=== PATIENT | female | born 1960 | race Caucasian/White ===

== ENCOUNTER 2019-04-20 17:52 | Emergency (ER) | payer MEDICARE, SELFPAY ==
[2019-04-20 17:53] VITALS: BP 152/87; PULSE 73; RESP 18; TEMP 36.8; O2SAT 96; BMI 48.6
--- NOTE | 2019-04-20 18:15 | CT_ITS ---
STUDY: CT BRAIN WITHOUT CONTRAST REASON FOR EXAM: Female, 58 years old. Head injury status post fall. Laceration above eye. RADIATION DOSAGE (If Supplied By Facility): CTDIvol = ( 044.99 ) mGy, DLP = ( 846.73 ) mGycm TECHNIQUE: Transaxial CT imaging of the brain was performed without administration of intravenous contrast material. Individualized dose optimization techniques were used for this CT. COMPARISON: No relevant priors. FINDINGS: Subcutaneous hematoma left forehead. Normal calvarium. Normal size ventricles and extra-axial spaces for the patient''s age. Normal white matter tracts of the cerebral hemispheres. Normal basal ganglia and thalami. Normal brainstem. Normal cerebellum. There is no intracranial hemorrhage. There are no findings of an acute ischemic infarction. Normal visualized paranasal sinuses. CT/Brain/Head without Contrast IMPRESSION: Left forehead hematoma and laceration. No acute intracranial injury. Electronically Signed: Eyal Shaw MD at 18:59 EST , Service support ,
--- NOTE | 2019-04-20 18:17 | ED.VISSUMM ---
- ER Visit Summary Date of Service: 04/20/19 Chief Complaint: [Fall and head injury] History of Present Illness: The patient is a 58 F [presents the emergency department complaint of a fall prior to arrival emergency department. Patient states that she was going into a store when she tripped and fell striking her head on the ground. No loss of consciousness. She denies any neck pain. She denies any paresthesias. Patient is not on any blood thinners. Patient did sustain a laceration to her forehead. Patient unsure of her last tetanus shot. Has history of hypertension and hypothyroidism. Patient not complaining of any other injury.] Physical Examination: [HEENT-PERRLA, EOMI. Cranial nerves II through XII grossly intact. TMs clear. Mucous membranes moist. No adenopathy. She has a 2.5 cm laceration above the left eyebrow. No bony step-offs. Able tympanum. Cardiovascular-regular rate and rhythm without murmur or ectopy Lungs-clear to auscultation, chest wall stable without crepitus or subcu emphysema Abdomen-normoactive bowel sounds, soft, nontender, no rebound or rigidity, no peritoneal signs. Extremities-intact ?4, normal range of motion, normal pulses, atraumatic] Test Results: [CT scan of the brain showed a hematoma over the forehead laceration but no acute intracranial injury.] Emergency Department Course and Treatment: [Duration repair-wound sterilely draped and prepped. Wound cleansed with Shur-Clens and irrigated with copious saline. Using 1% lidocaine total of 4 cc used to anesthetize the area locally. Wound cleansed with Shur-Clens and irrigated. Using 6-0 nylon a total of 6 single interrupted sutures placed with good wound edge approximation. Patient tired procedure well.] Treatment Plan: [Patient to follow-up with primary care physician in 5 to 7 days for suture removal.] Disposition: [Discharged home in stable condition] Impression: [Chemical fall Close head injury Forehead laceration 2.5 cm-simple repair] This note was generated with [employer] software. It may contain incorrect words, spelling, and punctuation that were not noted in review of the chart prior to signing ED Disposition - Plan for ED Patient: Referrals: Trang Frankel [Primary Care Provider] -
[2019-04-20] MEDS: Diphth,Pertuss(Acell),Tet Vac 0.5 ML Vial IM (18:43)
--- NOTE | 2019-04-20 19:09 | ED.DEP ---
ED Disposition - Plan for ED Patient: Instructions: LACERATION, Face (Suture or Tape), HEAD INJURY, No Wake-Up (Adult), FALL, Mechanical Referrals: Trang Frankel [Primary Care Provider] - 7 Days for suture removal
== END 2019-04-20 19:36 | disposition home or self-care (01) ==
PROVIDERS: Emergency Provider Emergency Medicine; Family Provider Family Medicine; PCP Family Medicine
DX: S01.81XA Laceration without foreign body of other part of head, initial encounter (principal); E03.9 Hypothyroidism, unspecified; I10 Essential (primary) hypertension; Z79.899 Other long term (current) drug therapy; W01.0XXA Fall on same level from slipping, tripping and stumbling without subsequent striking against object, initial encounter; Y93.01 Activity, walking, marching and hiking; Y92.512 Supermarket, store or market as the place of occurrence of the external cause; Y99.8 Other external cause status
CPT/HCPCS: 12011; 70450; 90471; 90715; 99285

== ENCOUNTER 2023-08-25 07:57 | Outpatient (CLI) | payer MEDICARE, BC, SELFPAY ==
[2023-08-25 08:25] VITALS: BP 74/44; PULSE 77; RESP 16; TEMP 35.9; O2SAT 95; BMI 37.8
[2023-08-25] MEDS: 0.9% Normal Saline (500mL Bag) 500 ML 15 ML IV (08:29)
[2023-08-25] MEDS: 0.9% NaCl Peripheral Flush Adult/Peds IV (08:29)
[2023-08-25 09:29] VITALS: BP 78/48; PULSE 72; RESP 16; TEMP 36.3
[2023-08-25 10:29] VITALS: BP 103/50; PULSE 74; RESP 16; TEMP 36.3; O2SAT 97
[2023-08-25 11:23] VITALS: BP 73/49; PULSE 79; RESP 16; TEMP 36.2
== END 2023-08-25 07:58 | disposition home or self-care (01) ==
PROVIDERS: PCP Family Medicine; Referring Provider Nurse Practitioner Adult Health; Visit Provider Nurse Practitioner Adult Health
DX: D50.0 Iron deficiency anemia secondary to blood loss (chronic) (principal)
CPT/HCPCS: 36415; 36430; 86850; 86880; 86900; 86901; 86905; 86920; 86922; J7040; P9016; A4216